=== PATIENT | female | born 1960 | race Caucasian/White ===

== ENCOUNTER 2016-09-20 09:45 | Emergency (ER) | payer BC ==
[2016-09-20 10:13] LABS: Bilirubin Negative (Negative); Blood, Urine Negative (Negative); Glucose, Urine (Dipstick) >=1000 mg/dL (Negative); Ketone, Urine Negative (Negative); Nitrite Negative (Negative); Protein, Urine (Dipstick) Negative (Neg-Trace); Urobilinogen 0.2 mg/dL (0.2-1.0)
[2016-09-20 10:40] LABS: #Basophils 0.1 thou/uL (0.0-0.2); #Eosinphils 0.1 thou/uL (0.0-0.7); #Lymphocytes 2.1 thou/uL (1.20-3.40); #Monocytes 0.5 thou/uL (0.11-0.59); #Neutrophils 3.4 thou/uL (1.40-6.50); %Basophils 1.2 % (0.0-1.0); %Eosinophils 1.6 % (0.0-10.0); %Monocytes 8.5 % (0.0-10.0); Hematocrit 42.7 % (36.0-47.0); Mean Platelet Volume 7.6 fL (7.4-10.4); Red Blood Cell (RBC) Count 4.79 mill/uL (4.20-5.40); White Blood Cell (WBC) Count 6.2 thou/uL (4.8-10.8)
[2016-09-20 10:50] LABS: Hemoglobin A1c 9.2 % (4.0-6.0)
[2016-09-20 10:56] LABS: ALT (SGPT) 15 U/L (0-55); AST (SGOT) 10 U/L (5-34); Alkaline Phosphatase 78 U/L (40-150); Anion Gap 12 mmol/L (10-20); BUN (Urea Nitrogen) 15 mg/dL (9.8-20.1); Bilirubin, Total 0.4 mg/dL (0.2-1.2); Calc. Creatinine Clearance 0 mL/min (70-130); Calcium 8.8 mg/dL (7.8-10.44); Carbon Dioxide 28 mmol/L (22-29); Chloride 100 mmol/L (98-107); Estimated GFR-MDRD 79; Globulin 2.7 g/dL (2.4-3.5); Protein, Total 6.4 g/dL (6.0-8.3)
--- NOTE | 2016-09-20 11:15 | ERRECORD ---
[facility] EMERGENCY RECORD HPI UTI (09:53 [facility]) CHIEF COMPLAINT: Patient presents for evaluation of urinary tract infection signs or symptoms:, dysuria, frequency. HISTORIAN: History provided by patient, 56F presents with complaints of dysuria and frequency. Reports mild low back pain as well, but states she has a physical job. Denies discharge, abdominal pain, fever. States symptoms have been present for 7 days. Tried a yeast infection treatment without relief. LOCATION: Symptoms are localized, most severe in the groin. QUALITY: Pain is sharp in nature, described as stabbing. TIME COURSE: Gradual onset of symptoms, There has been no change in the patient's symptoms over time. EXACERBATED BY: Patient's condition exacerbated by urination. RELIEVED BY: Patient's condition relieved by nothing. [facility] (09[facility]56 [facility] CONSTITUTIONAL: Negative constitutional review of systems, Historian denies chills, denies fever. EYES: Negative eye review of systems, Historian denies eye pain, denies vision changes. ENT: Negative ears, nose, throat review of systems, Historian denies rhinorrhea, denies sore throat, denies voice changes. CARDIOVASCULAR: Negative cardiovascular review of systems, Historian denies chest pain, denies palpitations. RESPIRATORY: Negative respiratory review of systems, Historian denies cough, denies shortness of breath. GI: Negative gastrointestinal review of systems, Historian denies abdominal pain, denies constipation, denies diarrhea, denies nausea, denies vomiting. GENITOURINARY FEMALE: Historian reports dysuria, reports frequency. MUSCULOSKELETAL: Negative musculoskeletal review of systems, Historian denies back pain, denies fall, denies injury. SKIN: Negative skin review of systems, Historian denies rash, denies skin changes. NEUROLOGIC: Negative neurologic review of systems, Historian denies headache, denies mental status changes, denies paralysis, denies paresthesias, denies sensory changes. HEMO/LYMPHATIC: Normal hematologic/lymphatic system review, Historian denies abnormal blood clotting. ALLERGIC/IMMUNOLOGIC: Normal allergy/immunologic system review, Historian denies frequent infections. PAST MEDICAL HISTORY (09:51 [facility]) MEDICAL HISTORY: No past medical history. FEMALE SURGICAL HISTORY: Patient has no surgical history. PSYCHIATRIC HISTORY: No previous psychiatric history. SOCIAL HISTORY: Patient denies alcohol use, Patient denies drug &a-1R&a+25V*p+0X*e7188Q*c202B*c15G*c2P*p-0X&a-25V&a+1R Name: Lauryn Salcido : 1960 F56 MedRec: [id number] AcctNum: [id number] Prepared: Sat Sep 20, 2016 12:48 by Interface Page 1 of 4 pMD [facility] EMERGENCY RECORD use, Patient currently uses tobacco, smokes cigarettes, Patient smokes 1/2 packs per day. KNOWN ALLERGIES No Known Drug Allergies CURRENT MEDICATIONS (10:01 [facility]) None VITAL SIGNS (10:04 LGIB) VITAL SIGNS: BP: 179/92, Pulse: 82, Resp: 18 (Non-Labored), Temp: 98.2 (Oral), Pain: 0, O2 sat: 98 on Room Air, Time: 09/20/2016 10:04. PHYSICAL EXAM (09:56 [facility]) CONSTITUTIONAL: Vital signs reviewed, Patient afebrile, Pulse normal, Blood pressure normal, Respiratory rate normal, Patient appears non toxic, Patient appears pain free, Patient alert and oriented to person, place and time. HEAD: Head exam normal, Head exam included findings of head atraumatic, normocephalic. EYES: Eye exam normal, Eye exam included findings of eyelids normal to inspection, Pupils equally round and reactive to light, Extraocular muscles intact, no nystagmus. ENT: ENT exam normal, Ear exam normal, external ear normal, tympanic membranes normal, no bleeding, Pharynx exam normal, Uvula exam normal, Tonsil exam normal, Mouth exam normal, mucous membranes moist, teeth normal. NECK: Neck exam normal, Neck exam included findings of normal range of motion, Trachea midline, no meningeal signs, no cervical adenopathy, no tenderness. RESPIRATORY CHEST: Respiratory and chest exam normal, Respiratory exam included findings of no respiratory distress, Breath sounds clear. CARDIOVASCULAR: Cardiovascular assessment normal, Cardiovascular exam included findings of heart rate regular rate and rhythm, Heart sounds normal. ABDOMEN FEMALE: Abdominal exam included findings of abdomen nontender, Bowel sounds normal, no distension, no mass, no pulsatile masses, no peritoneal signs, no rigidity, no guarding, no rebound, Rovsing's sign absent. BACK: Back exam normal, Back exam included findings of normal inspection, range of motion normal, no tenderness. UPPER EXTREMITY: Upper extremity exam normal, Upper extremity exam included findings of inspection normal, Range of motion normal, Motor strength normal, Sensation intact, Radial pulse normal. LOWER EXTREMITY: Lower extremity exam normal, Lower extremity exam included findings of inspection normal, Range of motion normal, Motor strength normal, Sensation intact, Posterior tibial pulse normal, Pedal pulse normal. NEURO: Neuro exam normal, Neuro exam findings include patient &a-1R&a+25V*p+0X*p3339E*c202B*c15G*c2P*p-0X&a-25V&a+1R Name: Lauryn Salcido : 1960 F56 MedRec: [id number] AcctNum: [id number] Prepared: Juan Sep 20, 2016 12:48 by Interface Page 2 of 4 pMD [facility] EMERGENCY RECORD oriented to person, place and time, Speech normal, Gait normal, Cranial nerves intact, no focal motor deficits, no focal sensory deficits. SKIN: Skin exam normal, Skin exam included findings of skin warm, dry, and normal in color, no rash. PSYCHIATRIC: Psychiatric exam normal, Normal affect. DOCTOR NOTES TEXT: The patient had presented with complaints that were concerning for a UTI, which was not supported by the urinalysis. The UA had a coincidental finding of glucosuria, and a subsequent fingerstick of 260 raised concern for new onset diabetes. Lab work was sent and did not demonstrate DKA, however she has an elevated HbA1c. Pelvic exam showed only a mild folliculitis, which is likely the source of her symptoms. I impressed upon the patient the importance of following up with the health clinic here as soon as possible. I also instructed her to return if she should develop any generalized malaise, nausea, vomiting, or excess fatigue. As her AIc is elevated, this is likely something she has had for a prolonged period of time, and my suspicion that she will develop DKA is low. I will start very low dose medications at this time, for fear of inducing hypoglycemia in an uneducated patient, and will have her follow up as soon as possible. (10:35 JJA) PATIENT STATUS: Patient has improved since arrival to emergency department. (10:35 JJAC) Patient has improved since arrival to emergency department. (11:06 [facility]) PATIENT PLAN: The patient will be discharged, The patient will follow up with primary care physician. (11:06 [facility] DATA REVIEWED: Lab data reviewed. (11:06 [facility] PROBLEM LIST No recorded problems DIAGNOSIS (11:04 [facility]) FINAL: PRIMARY: Type 2 Diabetes mellitus (NIDDM) - controlled with complications, ADDITIONAL: folliculitis. PRESCRIPTION Bactroban topical cream: CREAM (GRAM) : 2 % : TOPICAL : Quantity: 1 Unit: virgil Route: TOPICAL Schedule: every 8 hours Dispense: 30 Unit: g May substitute. Refills: No Refills . (10:47 [facility]) NOTES: for 5 days No refills. (10:47 [facility]) metFORMIN: TABLET, EXTENDED RELEASE 24 HR : 500 mg : ORAL : Quantity: 250 Unit: mg Route: ORAL Schedule: once a day (in the morning) Dispense: 15 May substitute. Refills: No Refills . (11:11 [facility]) NOTES: No refills. (11:11 [facility]) &a-1R&a+25V*p+0X*m1870E*c202B*c15G*c2P*p-0X&a-25V&a+1R Name: Lauryn Salcido DOB: 1960 F56 MedRec: [id number] AcctNum: [id number] Prepared: Sat Sep 20, 2016 12:48 by Interface Page 3 of 4 pMD [facility] EMERGENCY RECORD DISPOSITION PATIENT: Disposition Type: Discharge, Disposition: *Discharge Home. (11:04 [facility] Patient left the department. (11:34 [facility]) Tobar: SHAMA=MD Kayli, Milo VAZQUEZ=TIM Ochoa Krista LGIB=TIM Villagomez, Margoth &a-1R&a+25V*p+0X*f6202U*c202B*c15G*c2P*p-0X&a-25V&a+1R Name: Lauryn Salcido DOB: 1960 F56 MedRec: [id number] AcctNum: [id number] Prepared: Juan Sep 20, 2016 12:48 by Interface Page 4 of 4 pMD MTDD
--- NOTE | 2016-09-20 11:16 | PICIS ---
[facility] EMERGENCY RECORD TRIAGE (09:50 [facility]) TRIAGE NOTES: frequency x1 week. denies fever or chills. (09:50 [facility]) PATIENT: NAME: Lauryn Salcido, AGE: 56, GENDER: female, : Fri 1960, TIME OF GREET: Sat Sep 20, 2016 09:45, PREFERRED LANGUAGE: Norwegian, ETHNICITY: Not or , ECODE BILLING MAP: [facility] ER, KG WEIGHT: 74.84, , , PERSON ID: [id number], PCP: none. (09:50 [facility]) Zip Code: [facility], PHONE: , PAYMENT: [employer]. (10:16) COMPLAINT: urinary frequency. (09:50 [facility]) ADMISSION: URGENCY: 4 Non Urgent, ADMISSION SOURCE: Home, TRANSPORT: CAR, BED: ER -03. (09:50 LGIB) SIRS SCORING: Heart Rate 55-109 (0), Temp range 96.8-101.1 (0), respiratory rate 12-24 (0), Mental Status altered: no (0). (09:51 LG[facility]) PROVIDERS: TRIAGE NURSE: Margoth Villagomez RN. (09:50 LGIB) KNOWN ALLERGIES No Known Drug Allergies CURRENT MEDICATIONS (10:01 [facility]) None VITAL SIGNS (10:04 [facility]) VITAL SIGNS: BP: 179/92, Pulse: 82, Resp: 18 (Non-Labored), Temp: 98.2 (Oral), Pain: 0, O2 sat: 98 on Room Air, Time: 09/20/2016 10:04. NURSING ASSESSMENT: GENITOURINARY (10:06 [facility]) CONSTITUTIONAL: Complex assessment performed, Patient arrives ambulatory, Gait steady, History obtained from patient, Patient appears comfortable, Patient cooperative, Patient alert, Oriented to person, place and time, Skin warm, Skin dry, Skin normal in color, Mucous membranes pink, Mucous membranes moist, Patient is well-groomed, Patient complains of urinary frequency, frequency for 1 week. denies burning with urination. denies fever or chills. PAIN FEMALE: Patient rates pain as 0 out of 10. GENITOURINARY FEMALE: Associated with urinary complaints, frequency. ABDOMEN: Abdomen assessment findings include abdomen symmetrical, Abdomen soft, non-tender, Bowel sound normal, no associated nausea, no associated vomiting, no associated diarrhea. SAFETY: Side rails up, Cart/Stretcher in lowest position, Family at bedside, Call light within reach, Hospital ID band on. NURSING PROCEDURE: BEDSIDE TESTING (10:26 LGIB) GLUCOSE: Capillary blood sample, Result (mg/dl) 260. NURSING PROCEDURE: DISCHARGE NOTE (11:32 LGIB) &a-1R&a+25V*p+0X*n8196E*c202B*c15G*c2P*p-0X&a-25V&a+1R Name: Lauryn Salcido : 1960 F56 MedRec: [id number] AcctNum: [id number] Prepared: Sat Sep 20, 2016 12:48 by Interface Page 1 of 6 pMD [facility] EMERGENCY RECORD DISCHARGE: Patient discharged to home, ambulating without assistance, driving self, unaccompanied, Summary of Care printed/ provided, Discharge instructions given to patient, Simple or moderate discharge teaching performed, Prescriptions given and instructions on side effects given, Above person(s) verbalized understanding of discharge instructions and follow-up care, Patient treated and evaluated by physician. BELONGINGS: Belongings and valuables with patient at time of discharge include:, Belongings remain with patient, Valuables remain with patient. NURSING PROCEDURE: PELVIC EXAM (10:40 LGIB) PELVIC EXAM: Pelvic exam indicated for itching, Pelvic exam performed by Dr. Milan, Pelvic exam assisted by TIM Hutchison, Exam findings include no discharge, Exam findings include no bleeding, GC/Chlamydia cultures obtained, labeled in the presence of the patient and sent to lab. NOTES: Patient tolerated procedure well. SAFETY: Side rails up, Cart/Stretcher in lowest position, Call light within reach, Hospital ID band on. NURSING PROCEDURE: URINE COLLECTION (10:02 LGIB) URINE COLLECTION FEMALE: Urine collected by mid-stream clean catch, urine yellow in color, and clear, Specimen labeled in the presence of the patient and sent to lab. ORDER DETAILS Order Name: Beta-Hydroxybutyrate (Ketone), Status: Active, Time: 10:32 09/20/2016, User: SHAMA, - Ordered for: MD Milan Jason, - Entered by: MD Milan Jason - Sat Sep 20, 2016 10:32, - Quantity: 1, Order Name: CBC with Differential, Status: Active, Time: 10:29 09/20/2016, User: SHAMA, - Ordered for: MD Milan Jason, - Entered by: MD Milan Jason - Sat Sep 20, 2016 10:29, - Quantity: 1, Order Name: Comprehensive Metabolic Panel, Status: Active, Time: 10:29 09/20/2016, User: SHAMA, - Ordered for: MD Milan Jason, - Entered by: MD Milan Jason - Sat Sep 20, 2016 10:29, - Quantity: 1, Order Name: Culture, Urine, Status: Active, Time: 09:57 09/20/2016, User: SHAMA, - Ordered for: MD Milan Jason, - Entered by: MD Milan Jason - Sat Sep 20, 2016 09:57, - Quantity: 1, Order Name: GC/Chlamydia Profile by PCR, Status: Active, Time: 11:32 09/20/2016, User: LGIB, &a-1R&a+25V*p+0X*w5358V*c202B*c15G*c2P*p-0X&a-25V&a+1R Name: Lauryn Salcido : 1960 F56 MedRec: [id number] AcctNum: [id number] Prepared: Sat Sep 20, 2016 12:48 by Interface Page 2 of 6 D [facility] EMERGENCY RECORD - Ordered for: MD Milan Jason, - Entered by: TIM Villagomez, Margoth - Sat Sep 20, 2016 11:32, - Quantity: 1, Order Name: Hemoglobin A1c, Status: Active, Time: 10:29 09/20/2016, User: SHAMA, - Ordered for: MD Milan Jason, - Entered by: MD Milan Jason - Sat Sep 20, 2016 10:29, - Quantity: 1, Order Name: LDL Cholesterol-Direct, Status: Active, Time: 10:32 09/20/2016, User: SHAMA, - Ordered for: MD Milan Jason, - Entered by: MD Milan Jason - Sat Sep 20, 2016 10:32, - Quantity: 1, Order Name: Triglycerides, Status: Active, Time: 10:32 09/20/2016, User: SHAMA, - Ordered for: MD Milan Jason, - Entered by: MD Milan Jason - Sat Sep 20, 2016 10:32, - Quantity: 1, Order Name: Urinalysis w/ Rflx Microscopic, Status: Active, Time: 09:57 09/20/2016, User: SHAMA, - Ordered for: MD Milan Jason, - Entered by: MD Milan Jason - Sat Sep 20, 2016 09:57, - Quantity: 1, Order Name: VP3, Status: Active, Time: 11:32 09/20/2016, User: ELSIE, - Ordered for: MD Milan Jason, - Entered by: TIM Villagomez, [facility] Sep 20, 2016 11:32, - Quantity: 1. HPI UTI (09:53 [facility]) CHIEF COMPLAINT: Patient presents for evaluation of urinary tract infection signs or symptoms:, dysuria, frequency. HISTORIAN: History provided by patient, 56F presents with complaints of dysuria and frequency. Reports mild low back pain as well, but states she has a physical job. Denies discharge, abdominal pain, fever. States symptoms have been present for 7 days. Tried a yeast infection treatment without relief. LOCATION: Symptoms are localized, most severe in the groin. QUALITY: Pain is sharp in nature, described as stabbing. TIME COURSE: Gradual onset of symptoms, There has been no change in the patient's symptoms over time. EXACERBATED BY: Patient's condition exacerbated by urination. RELIEVED BY: Patient's condition relieved by nothing. ROS (09:56 [facility]) CONSTITUTIONAL: Negative constitutional review of systems, Historian denies chills, denies fever. EYES: Negative eye review of systems, Historian denies eye pain, denies vision changes. &a-1R&a+25V*p+0X*s8120T*c202B*c15G*c2P*p-0X&a-25V&a+1R Name: Lauryn Salcido : 1960 F56 MedRec: [id number] AcctNum: [id number] Prepared: Juan Sep 20, 2016 12:48 by Interface Page 3 of 6 D [facility] EMERGENCY RECORD ENT: Negative ears, nose, throat review of systems, Historian denies rhinorrhea, denies sore throat, denies voice changes. CARDIOVASCULAR: Negative cardiovascular review of systems, Historian denies chest pain, denies palpitations. RESPIRATORY: Negative respiratory review of systems, Historian denies cough, denies shortness of breath. GI: Negative gastrointestinal review of systems, Historian denies abdominal pain, denies constipation, denies diarrhea, denies nausea, denies vomiting. GENITOURINARY FEMALE: Historian reports dysuria, reports frequency. MUSCULOSKELETAL: Negative musculoskeletal review of systems, Historian denies back pain, denies fall, denies injury. SKIN: Negative skin review of systems, Historian denies rash, denies skin changes. NEUROLOGIC: Negative neurologic review of systems, Historian denies headache, denies mental status changes, denies paralysis, denies paresthesias, denies sensory changes. HEMO/LYMPHATIC: Normal hematologic/lymphatic system review, Historian denies abnormal blood clotting. ALLERGIC/IMMUNOLOGIC: Normal allergy/immunologic system review, Historian denies frequent infections. PAST MEDICAL HISTORY (09:51 IB) MEDICAL HISTORY: No past medical history. FEMALE SURGICAL HISTORY: Patient has no surgical history. PSYCHIATRIC HISTORY: No previous psychiatric history. SOCIAL HISTORY: Patient denies alcohol use, Patient denies drug use, Patient currently uses tobacco, smokes cigarettes, Patient smokes 1/2 packs per day. PHYSICAL EXAM (09:56 [facility]) CONSTITUTIONAL: Vital signs reviewed, Patient afebrile, Pulse normal, Blood pressure normal, Respiratory rate normal, Patient appears non toxic, Patient appears pain free, Patient alert and oriented to person, place and time. HEAD: Head exam normal, Head exam included findings of head atraumatic, normocephalic. EYES: Eye exam normal, Eye exam included findings of eyelids normal to inspection, Pupils equally round and reactive to light, Extraocular muscles intact, no nystagmus. ENT: ENT exam normal, Ear exam normal, external ear normal, tympanic membranes normal, no bleeding, Pharynx exam normal, Uvula exam normal, Tonsil exam normal, Mouth exam normal, mucous membranes moist, teeth normal. NECK: Neck exam normal, Neck exam included findings of normal range of motion, Trachea midline, no meningeal signs, no cervical adenopathy, no tenderness. RESPIRATORY CHEST: Respiratory and chest exam normal, Respiratory exam included findings of no respiratory distress, Breath sounds &a-1R&a+25V*p+0X*p6250E*c202B*c15G*c2P*p-0X&a-25V&a+1R Name: Lauryn Salcido : 1960 F56 MedRec: [id number] AcctNum: [id number] Prepared: Sat Sep 20, 2016 12:48 by Interface Page 4 of 6 pMD [facility] EMERGENCY RECORD clear. CARDIOVASCULAR: Cardiovascular assessment normal, Cardiovascular exam included findings of heart rate regular rate and rhythm, Heart sounds normal. ABDOMEN FEMALE: Abdominal exam included findings of abdomen nontender, Bowel sounds normal, no distension, no mass, no pulsatile masses, no peritoneal signs, no rigidity, no guarding, no rebound, Rovsing's sign absent. BACK: Back exam normal, Back exam included findings of normal inspection, range of motion normal, no tenderness. UPPER EXTREMITY: Upper extremity exam normal, Upper extremity exam included findings of inspection normal, Range of motion normal, Motor strength normal, Sensation intact, Radial pulse normal. LOWER EXTREMITY: Lower extremity exam normal, Lower extremity exam included findings of inspection normal, Range of motion normal, Motor strength normal, Sensation intact, Posterior tibial pulse normal, Pedal pulse normal. NEURO: Neuro exam normal, Neuro exam findings include patient oriented to person, place and time, Speech normal, Gait normal, Cranial nerves intact, no focal motor deficits, no focal sensory deficits. SKIN: Skin exam normal, Skin exam included findings of skin warm, dry, and normal in color, no rash. PSYCHIATRIC: Psychiatric exam normal, Normal affect. EVENTS TRANSFER: Triage to Emergency Emergency Room -03. (Sat Sep 20, 2016 09:50 LGIB) Removed from Emergency Emergency Room -03. (11:34 LGIB) DOCTOR NOTES TEXT: The patient had presented with complaints that were concerning for a UTI, which was not supported by the urinalysis. The UA had a coincidental finding of glucosuria, and a subsequent fingerstick of 260 raised concern for new onset diabetes. Lab work was sent and did not demonstrate DKA, however she has an elevated HbA1c. Pelvic exam showed only a mild folliculitis, which is likely the source of her symptoms. I impressed upon the patient the importance of following up with the health clinic here as soon as possible. I also instructed her to return if she should develop any generalized malaise, nausea, vomiting, or excess fatigue. As her AIc is elevated, this is likely something she has had for a prolonged period of time, and my suspicion that she will develop DKA is low. I will start very low dose medications at this time, for fear of inducing hypoglycemia in an uneducated patient, and will have her follow up as soon as possible. [facility] PATIENT STATUS: Patient has improved since arrival to emergency department. (10:35 [facility] Patient has improved since arrival to emergency department. (11:06 [facility] PATIENT PLAN: The patient will be discharged, The patient will &a-1R&a+25V*p+0X*e4396E*c202B*c15G*c2P*p-0X&a-25V&a+1R Name: Lauryn Salcido : 1960 F56 MedRec: [id number] AcctNum: [id number] Prepared: Juan Sep 20, 2016 12:48 by Interface Page 5 of 6 [facility] EMERGENCY RECORD follow up with primary care physician. (11:06 [facility] DATA REVIEWED: Lab data reviewed. (11:06 JJA) PROBLEM LIST No recorded problems DIAGNOSIS (11:04 JJA) FINAL: PRIMARY: Type 2 Diabetes mellitus (NIDDM) - controlled with complications, ADDITIONAL: folliculitis. DISPOSITION PATIENT: Disposition Type: Discharge, Disposition: *Discharge Home. (11:04 [facility] Patient left the department. (11:34 [facility]) INSTRUCTION (11:06 [facility] DISCHARGE: DIABETES, GENERAL INFO, HYPERGLYCEMIA, NEW ONSET (DIABETES SUSPECTED), FOLLICULITIS. SPECIAL: Follow up with the health clinic here at [facility] as soon as possible. [phone]. Return to the ED if you begin feeling nausea, fatigued, or weak. PRESCRIPTION Bactroban topical cream: CREAM (GRAM) : 2 % : TOPICAL : Quantity: 1 Unit: virgil Route: TOPICAL Schedule: every 8 hours Dispense: 30 Unit: g May substitute. Refills: No Refills . (10:47 [facility]) NOTES: for 5 days No refills. (10:47 [facility]) metFORMIN: TABLET, EXTENDED RELEASE 24 HR : 500 mg : ORAL : Quantity: 250 Unit: mg Route: ORAL Schedule: once a day (in the morning) Dispense: 15 May substitute. Refills: No Refills . (11:11 [facility]) NOTES: No refills. (11:11 [facility]) IMAGING (11:35 [facility]) *DISCHARGE INSTRUCTIONS RECEIPT: Image captured from scanner. *SUPPLY CHARGE SHEET: Image captured from scanner. ADMIN DIGITAL SIGNATURE: MD Milan Jason. (11:06 [facility]) MD Milan Jason. (12:41 [facility]) Tobar: SHAMA=MD Milan Jason KMOR=TIM Ochoa, Krystal LGIB=TIM Villagomez, Margoth &a-1R&a+25V*p+0X*g9654X*c202B*c15G*c2P*p-0X&a-25V&a+1R Name: Lauryn Salcido : 1960 F56 MedRec: [id number] AcctNum: [id number] Prepared: Sat Sep 20, 2016 12:48 by Interface Page 6 of 6 pMD MTDD
== END 2016-09-20 11:31 | disposition home or self-care (01) ==
LOC: BURERS 09:45
DX: E11.8 Type 2 diabetes mellitus with unspecified complications (principal); L73.9 Follicular disorder, unspecified
CPT/HCPCS: 36416; 80053; 81003; 82010; 83036; 83721; 84478; 85025; 87086; 87480; 87491; 87510; 87591; 87660; 99283; 36415-59

== ENCOUNTER 2016-10-03 15:49 | Outpatient (CLI) | payer BC ==
--- NOTE | 2016-10-03 22:11 | RAD ---
CERVICAL SPINE THREE VIEWS: 10/03/16 There is straightening of the cervical spine which could be due to spasm. Disc space narrowing is pr esent at C5-C6 and there are small anterior osteophytes at C3 through about C7. No fracture or dislo cation was seen. the C1 to dens distance is normal and the soft tissues are normal in thickness. IMPRESSION: 1. Mild degenerative change with slight disc space narrowing at C5-C6. 2. Loss of cervical lordosis. POS: HOME
--- NOTE | 2016-10-03 22:13 | RAD ---
LUMBAR SPINE THREE VIEWS 10/03/16 No fracture, dislocation, or disc space narrowing was seen. The SI joints are symmetrical. The bones are normal in appearance for age. IMPRESSION: No acute findings. POS: HOME
== END 2016-10-03 15:50 | disposition home or self-care (01) ==
LOC: BURRAD 15:49
PROVIDERS: ATTEND Physician Assistant
DX: M54.5 Low back pain (principal); M54.2 Cervicalgia; M50.30 Other cervical disc degeneration, unspecified cervical region
CPT/HCPCS: 72040; 72100

== ENCOUNTER 2016-10-19 11:26 | Emergency (ER) | payer BC ==
[2016-10-19] MEDS ORDERED: Ibuprofen 800 MG TAB ONE (12:28)
--- NOTE | 2016-10-19 22:52 | CT ---
PRELIMINARY REPORT/[facility]/EMERGENCY AFTER HOURS PROCEDURE: EXAM: CT Cervical Spine Without Intravenous Contrast. CLINICAL HISTORY: 56 years old, female; Pain; Radicular pain (radiculopathy); Cervical region; Patient HX: Pt states s he had had "neck" pain x several years with recent xrays showing arthritis and disk disease, pt stat es she has had a dull headache x 3 days, pt states the pain radiates down her left arm and she has limi indira rom with her left arm, no known prior surgeries to the cervical spine; TECHNIQUE: Axial computed tomography images of the cervical spine without intravenous contrast. Coronal and sagittal reformatted images were created and reviewed. COMPARISON: No relevant prior studies available. FINDINGS: Vertebrae: Normal alignment. No acute fracture. No suspicious lytic or sclerotic lesions. Discs/spinal canal/neural foramina: C2-C3: Disc height is normal. No spinal or foraminal stenosis. C3-C4: Disc height is normal. There is minimal broad based marginal disc osteophyte complex causing no spinal stenosis. There is moderate left foraminal stenosis due to degenerative changes in uncover tebral and facet joints. C4-C5: Disc height is moderately decreased. There is broad based central disc protrusion causing mil d spinal stenosis. Anteroposterior diameter of the thecal sac measures 7.5 mm. There is moderate rig ht and severe left foraminal stenosis due to degenerative changes in uncovertebral and facet joints. C5-C6: Disc height is severely decreased. There is central disc protrusion causing mild spinal steno sis. Anteroposterior diameter of the thecal sac measures 8.5 mm. There is mild bilateral foraminal s tenosis due to degenerative changes in uncovertebral and facet joints. C6-C7: Disc height is normal. There is broad based marginal disc protrusion causing mild spinal sten osis. Anteroposterior diameter of the thecal sac measures 9.5 mm. There is mild left foraminal steno sis due to degenerative changes in uncovertebral and facet joints. C7-T1: Disc height is normal. No spinal or foraminal stenosis. Soft tissues: Unremarkable. Nasopharynx: Mildly hypodense midline soft tissue fullness noted in the nasopharynx best seen on ser ies 2 image 6, measuring about 1.7 x 1.5 cm. Lung apices: Unremarkable as visualized. IMPRESSION: 1. Multilevel degenerative changes in the cervical spine are most prominent at C4-5 level, with mild spinal stenosis and bilateral foraminal stenosis, severe on the left and moderate on the right side . 2. Incidental finding of midline hypodense soft tissue fullness in the nasopharynx measuring 1.7 x 1 .5 cm. 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 If no prior exams are available to confirm stability, further evaluation with contrast enhanced CT or MRI is suggested. Thank you for allowing us to participate in the care of your patient. Dictated and Authenticated by: Verona Epstein MD 10/19/2016 12:55 PM Central Time ([place] \\T\\ [place]) FINAL REPORT CT OF THE CERVICAL SPINE WITHOUT CONTRAST: Date: 10-19-16 Technique: Spiral CT of the cervical spine was performed for evaluation of a left cervical radiculo jah. Axial slices were acquired and then coronal and sagittal reconstructions were done. FINDINGS: There is loss of the normal cervical lordosis which may be due to muscle spasm. The C1-2 dens dista nce is normal and the soft tissues anterior to the cervical spine were normal in thickness. Disc sp sissy narrowing is present, particularly at C5-6. Findings my level follow: C1-2: No acute findings. C2-3: No acute findings. C3-4: Minimal broad based disc bulge without any sign of spinal stenosis. There is mild to moderat e left foraminal stenosis. C4-5: Broad based disc osteophyte complex narrowing the AP diameter of the thecal sac to 7.5 mm. M oderate right and more severe left foraminal stenosis due to osteophytes. C5-6: Central disc protrusion causing minimal spinal stenosis. AP diameter of the canal is 8-9 mm. Mild bilateral foraminal stenosis is present. C6-7: Broad based disc bulging, but the AP diameter of the canal is 9-10 mm. Minimal left foramina l stenosis due to narrowing. C7-T1: No acute findings. The lung apices showed no sign of pneumothorax or significant infiltrate. There was a vague hypodense area in the midline of the nasopharynx measuring about 1.7 cm in diamete r. It could be a small Tornwaldt cyst. It would probably be best displayed by MRI if needed. IMPRESSION: 1. Multilevel degenerative changes with mild spinal stenosis and bilateral foraminal stenosis prese nt at particularly C4-5. It is more severe on the left and could potentially be the cause of the sy mptoms. MRI would be helpful. 2. 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 See comments above. Report is agreement with preliminary reading by KAYLAN. POS: HOME
== END 2016-10-19 13:15 | disposition home or self-care (01) ==
LOC: BURERS 11:26
DX: M50.10 Cervical disc disorder with radiculopathy, unspecified cervical region (principal); E11.9 Type 2 diabetes mellitus without complications; F17.210 Nicotine dependence, cigarettes, uncomplicated; Z79.899 Other long term (current) drug therapy
CPT/HCPCS: 36416; 72125